=== PATIENT | male | born 1950 | race Caucasian/White ===

== ENCOUNTER 2017-06-02 19:52 | Inpatient (IN) | payer OTHER ==
[~2017-06-02] VITALS: Ht 172.7 cm; Wt 88.8 kg
--- NOTE | ~2017-06-02 | CATHLAB ---
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 The Right Groin^ was infiltrated with 1% Lidocaine subcutaneous anesthesia. A PINNACLE 6FR Sheath #[id number] sheath was inserted into the RFA^. Coronary angiography was performed using coronary diagnostic catheters. The right coronary system was accessed and visualized with a JR 4 catheter. The left coronary system was accessed and visualized with a JL 4 catheter. The left ventricle was accessed and visualized with a Pigtail catheter. Left ventricular/Aortic Valve gradient assessed via catheter pullback. Left ventriculogram was performed in LUCIANO projection. Closure device was deployed with a 6 Fr Mynx. The patient tolerated the procedure well and there were no complications associated with the procedure. There was no hematoma. Intraoperative Conscious Sedation Sedation start time: 07:43 Case end Time: 08:33 Fentanyl 50 mcg Versed 1.5 mg Fluoro Time: 8.20 minutes [facility] [address] [place] [address] INVASIVE PROCEDURE REPORT Name: JEFFESE Room #: 205-P [facility] IN [facility].#: [id number] Admission: 06/02/17 Attend Phys: Vic Perez MD Discharge: Date of : 48 Date of Service: 06/04/17 [facility] Report #: [id number] Dose: DAP 58163.80 cGycm2 1339 mGy Contrast Type and Amount: Omnipaque 210 ml Diagnostic Cath Left Main Mild distal left main stenting which had been previously stented in a "Y" fashion extending into a codominant circumflex and small to moderate size ramus branch LAD The LAD was occluded and filled via the ECKERT graft. The in situ ECKERT was large in calliber and normal throughout its course. Widely patent distal anastamotic site to mid LAD. Circumflex Codominant and stented in its proximal and distal portions. Mild Intrastent plaquing present OM1 Occluded at or near its origin. Faint left to left collateralization OM2 Occluded at or near its origin. Faint left to left collateralization L JACOB The distal circumflex gave rise to the posterior descending branch, minimal plaquing Right Coronary Co-dominant RCA, stented almost throughout its course. Mild intrastent plaquing R PDA Mild-moderate diffuse plaquing RPLV Mild plaquing Ramus Severe ostial the ECKERT was intrastent stenosis of ramus branch, stenosis just off of left main Left Ventriculography The left ventricle is normal in size with contractility. The left ventricular ejection fraction is estimated to be 55-60%. Left ventricular wall motion abnormalities are present. There is 1+ mitral insufficiency. Mild anterolateral hypokinesis Hemodynamics The aortic pressure is 126/74 mmHg with a mean of 99 mmHg. The left ventricular pressure is 138/4 mmHg with a mean of mmHg. The left ventricular end diastolic pressure is 19 mmHg. PCI Technique Lesion Anticoagulation was achieved with Heparin, Integrilin. Patient was preloaded with Plavix. Percutaneous coronary intervention was performed on the ramus intermedius segment. The lesion stenosis prior to intervention was 95% with RAFA 3 flow. A LAUNCHER 6FR EBU 3.5 #[id number] Guide Catheter was used to engage the left main ostium. A Luge Wire .014 x 182CM #[id number] Interventional Guidewire was used to cross the lesion. BALLOON DILATION [facility] [address] [place] [address] INVASIVE PROCEDURE REPORT Name: JEFFESE CARL Room #: 205-P [facility] IN M.R.#: [id number] Admission: 06/02/17 Attend Phys: Vic Perez MD Discharge: Date of : 48 Date of Service: 06/04/17 1640 Report #: [id number] A Balloon catheter TREK NC RX 2.5 X 12 #[id number] was inserted and inflated up to 20.00atm for 95seconds. Repeat angiography revealed the following post-dilatation results: 0% residual with RAFA III flow maintained. Additional Inflation: 22.00atm for 122seconds. Final angiography reveals 0 % stenosis with RAFA 3 flow. Conclusion 1. Normal left ventricular function with mild anterolateral wall hypokinesis. EF 60%. Mild MR 2. Severe multivessel coronary artery disease 3. Severe intrastent Ramus branch stenosis treated with PTCA, high pressure non-compliant balloon 4. Patent ECKERT to LAD 5. Occluded SVG to OM system. Faint left to left collateralization to OM branches 6. Patent RCA, left main, and circumflex stents Recommendations Daily ASA with Plavix for at least one year Cardiac Rehabilitation Referral Aggressive Medical Therapy Medications Administered AMELIE Inhibitor (any) Aspirin (any) Beta Ramona (any) Statin (any) Clopidogrel Cardiac Rehabilitation Referral <ELECTRONICALLY SIGNED> By: Herbie Richey MD, [facility] 06/04/17 1640 1640 1640 Herbie Richey MD, [facility] /INF
--- NOTE | ~2017-06-02 | EKG ---
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 Expert: Rajendra MACIAS : 1950 Requested By: Karla Ann Order Number: [id number] MD: Herbie Richey Measurements Intervals [place] Rate: 86 P: 75 AR: 199 QRS: -16 QRSD: 124 T: 104 QT: 421 QTc: 504 Interpretive Statements Sinus rhythm ST and T wave abnormality, consider ischemia No previous ECG available for comparison Electronically Signed On 06-03-2017 14:47:11 CDT by Herbie Richey [email or web address] <ELECTRONICALLY SIGNED> By: Herbie Richey MD, [facility] 06/03/17 1447 0643 0643 Herbie Richey MD, FACC /EPI
--- NOTE | ~2017-06-02 | EKG ---
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1950 Requested By: Herbie Richey Order Number: [id number] MD: Herbie Richey Measurements Intervals [place] Rate: 57 P: 67 [place]: 174 QRS: -48 QRSD: 118 T: 56 QT: 475 QTc: 463 Interpretive Statements Sinus rhythm Left anterior fascicular block Probable anteroseptal infarct, old Nonspecific T abnormalities, lateral leads Baseline wander in lead(s) II,III,aVF Compared to ECG 06/04/2017 09:25:54 sinus rhythm has replaced atrial flutter Electronically Signed On 06-05-2017 8:39:08 CDT by Herbie Richey [email or web address] <ELECTRONICALLY SIGNED> By: Herbie Richey MD, [facility] 06/05/17 0839 0642 0642 Herbie Richey MD, [facility] /EPI
--- NOTE | ~2017-06-02 | EKG ---
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1950 Requested By: Nalini Ayers Order Number: [id number] MD: Herbie Richey Measurements Intervals [place] Rate: 70 P: 50 MT: 185 QRS: -27 QRSD: 124 T: 86 QT: 423 QTc: 457 Interpretive Statements Sinus rhythm Nonspecific intraventricular conduction delay Non-specific ST segment abnormality, lateral leads No previous ECG available for comparison Electronically Signed On 06-03-2017 14:46:19 CDT by Herbie Richey [email or web address] <ELECTRONICALLY SIGNED> By: Herbie Richey MD, [facility] 06/03/17 1446 56 56 Herbie Richey MD, [facility] /EPI
--- NOTE | ~2017-06-02 | EKG ---
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 : 1950 Requested By: Vic Perez Order Number: [id number] MD: Herbie Richey Measurements Intervals [place] Rate: 97 P: 79 [place]: 197 QRS: -46 QRSD: 131 T: 127 QT: 384 QTc: 488 Interpretive Statements Sinus rhythm Nonspecific IVCD with LAD LVH w/ repol abnormalities, possible ischemia No previous ECG available for comparison Electronically Signed On 06-03-2017 17:49:03 CDT by Herbie Richey [email or web address] <ELECTRONICALLY SIGNED> By: Herbie Richey MD, [facility] 06/03/17 1749 1357 135 Herbie Richey MD, FAC /EPI
--- NOTE | ~2017-06-02 | EKG ---
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
--- NOTE | ~2017-06-02 | 2DMMODE ---
[facility] [address] [facility] [place] [address] 2 D/M-MODE ECHOCARDIOGRAM Name: JEFFESE Room #: 349-I ADM IN .R.#: [id number] Admission: 06/02/17 Attend Phys: Vic Perez MD Discharge: Date of : 48 Date of Service: 06/03/17 1134 Report #: [id number] THIS REPORT FOR: //name// APPROVED REPORT Study performed: 06/03/2017 09:42:07 EXAM: Comprehensive 2D, Doppler, and color-flow Echocardiogram Patient Location: Echo lab Room #: 349 Status: routine BSA: 2.09 HR: 67 bpm BP: 132/70 mmHg Rhythm: NSR Other Information Study Quality: Good Indications Pulmonary edema, Hx: CAD/CABG, HTN, HLD, DM, AFIB with Ablation 2D Dimensions RVDd: 37.05 mm LVEF(%): 66.83 (>50%) IVSd: 12.96 (7-11mm) LVOT Diam: 21.36 (18-24mm) LVDd: 43.04 mm PWd: 12.05 (7-11mm) Ascending Ao: 34.34 (22-36mm) LVDs: 27.24 (25-40mm) Aortic Root: 35.30 mm IVC: 18.00 mm Deutsch's LVEF: 66.83 % Volumes Left Atrial Volume (Systole) Single Plane 4CH: 81.27 mL Single Plane 2CH: 80.88 mL LA ESV Index: 41.00 mL/m2 Aortic Valve AoV Peak Maykel.: 3.21 m/s AO Peak Gr.: 41.29 mmHg LVOT Max P.28 mmHg AO Mean Gr.: 24.12 mmHg AO V2 Mean: 2.35 m/s LVOT Max V: 1.44 m/s AO V2 VTI: 75.76 cm GERARDO Vmax: 1.60 cm2 Mitral Valve [facility] [place] [address] 2 D/M-MODE ECHOCARDIOGRAM Name: JEFFESE Room #: 349-I ADM IN M.R.#: [id number] Admission: 06/02/17 Attend Phys: Vic Peerz MD Discharge: Date of : 48 Date of Service: 06/03/17 1134 Report #: [id number] E/A Ratio: 1.3 MV Decel. Time: 256.57 ms MV E Max Maykel.: 1.31 m/s MV A Maykel.: 1.04 m/s MV PHT: 74.41 ms IVRT: 92.27 ms Pulmonary Valve PV Peak Maykel.: 1.62 m/s PV Peak Gr.: 10.52 mmHg Pulmonary Vein P Vein S: 0.38 m/s P Vein A: 0.25 m/s P Vein D: 0.66 m/s P Vein A Dur.: 143.0 msec P Vein S/D Ratio: 0.58 Tricuspid Valve TR Peak Maykel.: 2.70 m/s TR Peak Gr.: 29.27 mmHg Left Ventricle The left ventricle is normal size. There is normal left ventricular wall thickness. The left ventricular systolic function is normal. LVEF is 55-60%. Grade II - pseudonormal filling dynamics. Right Ventricle The right ventricle is normal size. The right ventricular systolic function is normal. Atria Left atrium is dilated. Right atrium is at the upper limits of normal. Aortic Valve Aortic valve leaflets are moderately calcified. Trace aortic regurgitation. There is mild to moderate valvular aortic stenosis. Calculated aortic valve area is 1.6 cm2 with maximum pressure gradient of 41 mmHg and mean pressure gradient of 24 mmHg. Mitral Valve There is moderate mitral annular calcification. Mild mitral regurgitation. No evidence of mitral valve stenosis. Tricuspid Valve The tricuspid valve is normal in structure. Trace tricuspid regurgitation. Estimated PAP 29 mmHg plus [place] [address] 2 D/M-MODE ECHOCARDIOGRAM Name: JEFFESE SIDDHARTHA Room #: 349-I ADM IN M.R.#: [id number] Admission: 06/02/17 Attend Phys: Vic Perez MD Discharge: Date of : 48 Date of Service: 06/03/17 1134 Report #: [id number] Pulmonic Valve The pulmonary valve is normal in structure. Trace pulmonic regurgitation. Great Vessels The aortic root is normal in size. The ascending aorta is normal in size. IVC is not well visualized. Pericardium There is no pericardial effusion. <Conclusion> The left ventricle is normal size. LVEF is 55-60%. Left atrium is dilated. Aortic valve leaflets are moderately calcified. Trace aortic regurgitation. There is mild to moderate valvular aortic stenosis. Calculated aortic valve area is 1.6 cm2 with maximum pressure gradient of 41 mmHg and mean pressure gradient of 24 mmHg. There is moderate mitral annular calcification. Mild mitral regurgitation. The tricuspid valve is normal in structure. Trace tricuspid regurgitation. Estimated PAP 29 mmHg plus right atrial pressure. The pulmonary valve is normal in structure. Trace pulmonic regurgitation. There is no pericardial effusion. <ELECTRONICALLY SIGNED> By: Celso Bai MD 06/03/17 1134 1134 1134 Celso Bai MD /INF
[2017-06-02 19:52] VITALS: BP 156/68
[2017-06-02 20:12] LABS: ABSOLUTE NEUTROPHILS 12.8 thou/uL (1.4-8.2); BASOPHILS 0.6 % (0.0-2.0); HEMATOCRIT 40.5 % (42.0-52.0); HEMOGLOBIN 13.2 gm/dL (14.0-18.0); LYMPHOCYTES 9.4 % (24.0-44.0); MCH 26.8 pg (26.0-34.0); MCHC 32.7 g/dL (28.0-37.0); MCV 81.8 fL (80.0-100.0); MONOCYTES 4.2 % (1.0-8.0); PLATELET COUNT 272 thou/uL (150-400); POLYS 84.8 % (36.0-66.0); RBC 4.95 mil/uL (4.50-6.00); RDW 14.9 % (10.5-14.5); WBC 15.1 thou/uL (4.0-11.0)
[2017-06-02 20:19] LABS: ANION GAP 9 mmol/L (7-16); BUN 19 mg/dL (7-18); CALCIUM 9.6 mg/dL (8.5-10.1); CHLORIDE 97 mmol/L (98-107); CO2 26 mmol/L (21-32); CREATININE 1.1 mg/dL (0.7-1.3); GLUCOSE 186 mg/dL (74-106); POTASSIUM 4.1 mmol/L (3.5-5.1); SODIUM 132 mmol/L (136-145)
[2017-06-02 20:28] LABS: TROPONIN-I < 0.04 ng/mL (<0.06)
[2017-06-02 20:51] LABS: BE(vivo) -0.8 mmol/L (-2 to +3); PCO2 40.5 mmHg (35.0-45.0); PO2 57.3 mmHg (80.0-100.0); pH 7.391 (7.360-7.450); sO2 89.7 % (92.0-98.0)
[2017-06-02 23:27] VITALS: BP 126/63
[2017-06-02 23:37] LABS: ALBUMIN 4.2 g/dL (3.4-5.0); DIRECT BILIRUBIN 0.2 mg/dL (<0.1-0.3); TOTAL BILIRUBIN 0.8 mg/dL (<0.1-1.0); TOTAL PROTEIN 7.9 g/dL (6.4-8.2)
[2017-06-02 23:45] VITALS: BP 135/74
[2017-06-03] VITALS (10 sets, daily range): BP systolic 116–174; BP diastolic 51–98
[2017-06-03] MEDS ORDERED: METFORMIN HCL500 MG PO (01:42)
[2017-06-03] MEDS ORDERED: LIPITOR 20 MG T20 M1 PO (01:43)
[2017-06-03] MEDS ORDERED: RANEXA500 MG PO (01:45)
[2017-06-03] MEDS ORDERED: MULTAQ400 MG PO (01:46)
[2017-06-03] MEDS ORDERED: TOPROL XL100 MG PO (01:47)
[2017-06-03] MEDS ORDERED: IMDUR 30 MG TAB30 M1 PO (01:47)
[2017-06-03] MEDS ORDERED: AMLODIPINE BESY10 MG PO (01:49)
[2017-06-03] MEDS ORDERED: PRINIVIL10 MG PO (01:49)
[2017-06-03] MEDS ORDERED: COUMADIN 1MG TAB1 M1 PO (01:50)
[2017-06-03 07:12] LABS: INR 1.8; PROTIME 18.1 Seconds (9.3-11.4)
[2017-06-03 07:32] LABS: CHOLESTEROL 118 mg/dL (<200); HDL CHOLESTEROL 47 mg/dL (>40); LDL CHOLESTEROL 56 mg/dL (<100); TC:HDL 2.5 Ratio (Not establshd); TRIGLYCERIDE 75 mg/dL (<150); VLDL 15 mg/dL (<40)
[2017-06-03 14:13] LABS: GLYCOHEMOGLOBIN (HGB A1C) 5.6 % (4.8-5.6)
[2017-06-03 15:41] LABS: HEMATOCRIT 39.3 % (42.0-52.0); HEMOGLOBIN 12.8 gm/dL (14.0-18.0); MCH 26.1 pg (26.0-34.0); MCHC 32.5 g/dL (28.0-37.0); MCV 80.3 fL (80.0-100.0); RBC 4.89 mil/uL (4.50-6.00); WBC 11.6 thou/uL (4.0-11.0)
[2017-06-03] MEDS ORDERED: ASPIR 8181 MG PO (18:21)
[2017-06-03] MEDS ORDERED: PLAVIX 75 MG TA75 M1 PO (18:28)
[2017-06-03] MEDS ORDERED: PROTONIX40 M1 PO (18:30)
[2017-06-03] MEDS ORDERED: NITROGLYCERIN0.4 MG SUBLING (18:30)
[2017-06-04] VITALS (9 sets, daily range): BP systolic 100–133; BP diastolic 48–80
[2017-06-04 06:33] LABS: HEMATOCRIT 36.8 % (42.0-52.0); HEMOGLOBIN 12.2 gm/dL (14.0-18.0); MCH 26.8 pg (26.0-34.0); MCHC 33.2 g/dL (28.0-37.0); MCV 80.8 fL (80.0-100.0); RBC 4.55 mil/uL (4.50-6.00); RDW 15.1 % (10.5-14.5); WBC 11.6 thou/uL (4.0-11.0)
[2017-06-04 06:57] LABS: CREATININE 1.1 mg/dL (0.7-1.3); INR 1.5; POTASSIUM 3.8 mmol/L (3.5-5.1); PROTIME 15.4 Seconds (9.3-11.4)
[2017-06-05] VITALS (8 sets, daily range): BP systolic 99–129; BP diastolic 62–81
[2017-06-05 03:42] LABS: HEMATOCRIT 38.6 % (42.0-52.0); HEMOGLOBIN 12.8 gm/dL (14.0-18.0); MCH 27.1 pg (26.0-34.0); MCHC 33.2 g/dL (28.0-37.0); MCV 81.7 fL (80.0-100.0); RBC 4.73 mil/uL (4.50-6.00); RDW 15.4 % (10.5-14.5); WBC 8.5 thou/uL (4.0-11.0)
[2017-06-05 03:56] LABS: CALCIUM 9.1 mg/dL (8.5-10.1); CREATININE 0.9 mg/dL (0.7-1.3); POTASSIUM 3.9 mmol/L (3.5-5.1)
[2017-06-05] MEDS ORDERED: CARDIZEM CD 18180 M3 PO (12:28)
[2017-06-06 03:12] LABS: HEMATOCRIT 38.6 % (42.0-52.0); HEMOGLOBIN 12.7 gm/dL (14.0-18.0); MCH 26.9 pg (26.0-34.0); MCV 81.7 fL (80.0-100.0); RBC 4.72 mil/uL (4.50-6.00); RDW 15.2 % (10.5-14.5); WBC 9.7 thou/uL (4.0-11.0)
[2017-06-06 03:22] LABS: CALCIUM 9.4 mg/dL (8.5-10.1); CREATININE 1.1 mg/dL (0.7-1.3); POTASSIUM 3.9 mmol/L (3.5-5.1)
[2017-06-06 04:26] VITALS: BP 127/68
[2017-06-06 07:51] VITALS: BP 127/68
[2017-06-06 08:00] VITALS: BP 116/68
== END 2017-06-06 09:46 | disposition home or self-care (01) | DRG 250 ==
LOC: ER 19:52 → 3W 21:36 → EROBS 21:36 → 3W 23:30 → 2N 06-04 08:52
PROVIDERS: Emergency Medicine; Hospitalist; Internal Medicine; Nurse Practitioner Acute Care; Nurse Practitioner Gerontology
DX: I11.0 Hypertensive heart disease with heart failure (principal); J96.00 Acute respiratory failure, unspecified whether with hypoxia or hypercapnia; J81.0 Acute pulmonary edema; I48.91 Unspecified atrial fibrillation; E11.9 Type 2 diabetes mellitus without complications; E78.5 Hyperlipidemia, unspecified; I50.31 Acute diastolic (congestive) heart failure; I25.2 Old myocardial infarction; I25.10 Atherosclerotic heart disease of native coronary artery without angina pectoris; Z95.1 Presence of aortocoronary bypass graft; Z82.49 Family history of ischemic heart disease and other diseases of the circulatory system; Z83.3 Family history of diabetes mellitus; Z87.891 Personal history of nicotine dependence; Z95.5 Presence of coronary angioplasty implant and graft; Z79.01 Long term (current) use of anticoagulants; Z79.82 Long term (current) use of aspirin; Z79.899 Other long term (current) drug therapy
CPT/HCPCS: 10081; 10879